=== PATIENT | female | born 1965 | race Caucasian/White ===

== ENCOUNTER 2023-11-27 20:05 | Outpatient (CLI) | payer MEDICARE, SELFPAY | END 2023-11-27 20:06 | disposition home or self-care (01) | LOC: AMB 12-24 23:06 | PROVIDERS: Visit Provider Family Medicine | DX: J96.90 Respiratory failure, unspecified, unspecified whether with hypoxia or hypercapnia (principal) | CPT/HCPCS: A0425; A0434 ==